=== PATIENT | female | born 2000 | race Caucasian/White ===

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

== ENCOUNTER 2022-09-21 18:41 | Emergency (ER) | payer MEDICAID, SELFPAY ==
[2022-09-21 18:54] VITALS: BP 147/82; PULSE 76; RESP 18; TEMP 35.7; O2SAT 98
--- NOTE | 2022-09-21 19:02 | W.ED.NAVMDI ---
HPI - Nausea/Vomiting/Diarrhea General: Chief complaint: Nausea/Vomiting/Diarrhea Stated complaint: 10 weeks , n/v, dehydrated? Time Seen by Provider: 09/21/22 18:57 Source: patient Mode of arrival: ambulatory Limitations: no limitations History of Present Illness: 21-year-old female who is currently 10 weeks she states that she has had issues with vomiting with this . She states that she had ran out of her nausea meds last night states she been having multiple episodes of vomiting today has not been able to tolerate any p.o. has had some dull abdominal cramping. She denies any vaginal bleeding. Associated nausea: Yes Associated symtoms: Reports nausea; Denies chest pain, dysuria or headache(s) Review of Systems Const: Denies: fever(s), chills, body aches or change in appetite Eyes: Denies: blurry vision or eye discomfort ENMT: Denies: throat pain or dental pain Card: Denies: chest pain Resp: Denies: dyspnea GI: Reports: abdominal pain, nausea and vomiting : Denies: dysuria Musc: Denies: neck pain or back pain Skin/Breast: Denies: rash Neuro: Denies: headache(s) Psych: Denies: depression Miguel/Lymph: Denies: easy bruising All/Imm: Denies: urticaria PFSH ED PFSH: Medical History Depression Seasonal allergies Surgical History No pertinent past surgical history Family History Other Heart disease Stroke Social History Smoking and tobacco status: never smoked Second hand smoke exposure: No Alcohol intake: never Current gender identity: Female Female Reproductive History: Date of last menstrual period: 07/09/22 Physical Exam Const: COMMON NORMALS: no acute distress, patient oriented x3 and healthy appearing HENMT: COMMON NORMALS: normocephalic and atraumatic HEAD & SCALP: normocephalic and atraumatic Eye: COMMON NORMALS: Equal, round and reactive pupils present and EOMs intact bilaterally PUPIL: Yes Equal, round and reactive pupils present Neck/C-Spine: COMMON NORMALS: full ROM and supple Chest: COMMONS NORMALS: normal inspection of the chest and normal palpation of entire chest wall Resp: COMMON NORMALS: normal respiratory effort, No retractions, No use of accessory muscles and clear to auscultation bilaterally AUSCULTATION: clear to auscultation bilaterally Cardio: COMMON NORMALS: regular rate, regular rhythm and No murmurs present (Cardio) RATE: regular rate RHYTHM: regular rhythm GI: COMMON NORMALS: Normal to inspection, nondistended, normoactive bowel sounds present, Soft to palpation, non-tender and no masses PALPATION: Yes Soft to palpation Extremity: COMMON NORMALS: normal to inspection and full ROM Neuro: COMMON NORMALS: patient oriented x3, moves all extremities and no focal motor deficits Psych: COMMON NORMALS: mental status grossly normal, Normal thought process present and cooperative THOUGHT PROCESS: Normal thought process present Skin: COMMON NORMALS: no rashes or lesions noted and no wounds GENERAL SKIN EXAM: no rashes or lesions noted Course Vital Signs: Vital signs: Vital Signs Temperature 96.3 F L 09/21/22 18:54 Pulse Rate 86 09/21/22 19:30 Respiratory Rate 14 09/21/22 19:30 Blood Pressure 142/73 09/21/22 19:30 Pulse Oximetry 100 09/21/22 19:30 MDM - Nausea/Vomiting/Diarrhea Medical Decision Making Patient presents with hyperemesis gravidarum she feels much improved here after fluids and antiemetics we will prescribe her Zofran for home she is to follow-up with her OB she has no complaints she is stable for discharge. Lab Data 09/21/22 19:20 09/21/22 19:20 Laboratory Results WBC 14.9 10^3/uL (4.5-13.0) H 09/21/22 19:20 RBC 4.78 10^6/uL (4.1-5.3) 09/21/22 19:20 Hgb 12.3 g/dL (11.5-15.3) 09/21/22 19:20 Hct 37.0 % (37.0-47.0) 09/21/22 19:20 MCV 77.4 fl (81-99) L 09/21/22 19:20 MCH 25.7 pg (28.0-34.0) L 09/21/22 19:20 MCHC 33.2 g/dL (30.0-36.0) 09/21/22 19:20 RDW 14.7 % (12.1-15.1) 09/21/22 19:20 Plt Count 346 10^3/cmm (130-400) 09/21/22 19:20 MPV 11.0 fL (7.4-10.4) H 09/21/22 19:20 Neut % (Auto) 92.9 % 09/21/22 19:20 Lymph % (Auto) 5.4 % 09/21/22 19:20 Moca % (Auto) 1.3 % 09/21/22 19:20 Eos % (Auto) 0.0 % 09/21/22 19:20 Baso % (Auto) 0.1 % 09/21/22 19:20 Neut # (Auto) 13.85 10^3/uL (1.8-8.0) H 09/21/22 19:20 Lymph # (Auto) 0.8 10^3/uL (1.5-6.5) L 09/21/22 19:20 Moca # (Auto) 0.2 10^3/uL (0.2-0.9) 09/21/22 19:20 Eos # (Auto) 0.0 10^3/uL (0.0-0.8) 09/21/22 19:20 Baso # (Auto) 0.0 10^3/uL (0.0-0.1) 09/21/22 19:20 Nucleated RBC % (auto) 0 % 09/21/22 19:20 Nucleated RBCs # 0.0 /100WBC 09/21/22 19:20 Sodium 135 mmol/L (136-145) L 09/21/22 19:20 Potassium 3.5 mmol/L (3.5-5.1) 09/21/22 19:20 Chloride 99 mmol/L (98-107) 09/21/22 19:20 Carbon Dioxide 16 mmol/L (22-29) L 09/21/22 19:20 Anion Gap 23.5 (5-19) H 09/21/22 19:20 BUN 7 mg/dL (6-20) 09/21/22 19:20 Creatinine 0.4 mg/dL (0.5-0.9) L 09/21/22 19:20 GFR Calculation 205.6 mL/min (90-130) H 09/21/22 19:20 Glucose 174 mg/dL (65-115) H 09/21/22 19:20 Calculated Osmolality 282 mOsm/kg (285-295) L 09/21/22 19:20 Calcium 10.4 mg/dL (8.5-10.5) 09/21/22 19:20 Total Bilirubin 0.2 mg/dL (0.15-1.2) 09/21/22 19:20 AST 14 U/L (0-32) 09/21/22 19:20 ALT 7 U/L (0-33) 09/21/22 19:20 Alkaline Phosphatase 69 U/L (35-105) 09/21/22 19:20 Total Protein 8.0 g/dL (6.6-8.7) 09/21/22 19:20 Albumin 4.5 g/dL (3.5-5.2) 09/21/22 19:20 Globulin 3.5 g/dL (1.3-4.6) 09/21/22 19:20 Lipase 14 U/L (13-60) 09/21/22 19:20 Discharge Plan Discharge Patient Disposition: Home Clinical Impression: Hyperemesis gravidarum Condition: Stable Prescriptions: New ondansetron 4 mg tablet,disintegrating 4 mg PO Q6H PRN (Reason: nausea and vomiting) Qty: 14 0RF No Action loperamide [Imodium A-D] 2 mg capsule 2 mg PO Q4H PRN (Reason: loose stool) Qty: 30 0RF Rx Instructions: do not exceed 8 mg per 24 hrs ondansetron HCl 4 mg tablet 4 mg PO Q6H PRN (Reason: nausea and vomiting) Qty: 60 0RF ciprofloxacin HCl 500 mg tablet 500 mg PO BID 7 Days Qty: 14 0RF paroxetine HCl 40 mg tablet 40 mg PO DAILY 30 Days Qty: 30 6RF Discharge Orders: Discharge ED (Routine); Ordered 09/21/22 Ordered By: Misti Das Referrals: Cheryl Sweet MD [Family Provider] - Discharge Diet: Advance as tolerated Discharge Activity: Resume usual activity Patient Instructions: Opioid Safety, Pain Management Coding Level of Care Code [facility] Administrator for Chg Fwd Exam Comprehensive
[2022-09-21] MEDS: diphenhydrAMINE 50 mg/mL SDV 1mL IVP (19:18)
[2022-09-21] MEDS: metoclopramide 5 mg/mL SDV 2 mL 10 MG IVP (19:19)
[2022-09-21] MEDS: sodium chloride 0.9% 1,000 ML 999 ML IV ×2 (19:19→19:57)
[2022-09-21 19:26] VITALS: BP 160/90; PULSE 83; RESP 14; O2SAT 99
[2022-09-21 19:30] VITALS: BP 142/73; PULSE 86; RESP 14; O2SAT 100
[2022-09-21] MEDS: ondansetron 2 mg/ML SDV 2 mL 4 MG IVP (19:33)
[2022-09-21 19:35] LABS: Basophils % 0.1 %; Hemoglobin 12.3 g/dL (11.5-15.3); Lymphocytes # 0.8 10^3/uL (1.5-6.5); Lymphocytes % 5.4 %; Mean Corpuscular HGB Conc 33.2 g/dL (30.0-36.0); Mean Corpuscular Hemoglobin 25.7 pg (28.0-34.0); Mean Corpuscular Volume 77.4 fl (81-99); Monocytes # 0.2 10^3/uL (0.2-0.9); Monocytes % 1.3 %; Neutrophils # 13.85 10^3/uL (1.8-8.0); Neutrophils % 92.9 %; Nucleated Red Blood Cells % 0 %; Platelet Count 346 10^3/cmm (130-400); Red Blood Count 4.78 10^6/uL (4.1-5.3); Red Cell Distribution Width 14.7 % (12.1-15.1); White Blood Count 14.9 10^3/uL (4.5-13.0)
[2022-09-21 19:58] LABS: Alanine Aminotransferase 7 U/L (0-33); Albumin Level 4.5 g/dL (3.5-5.2); Alkaline Phosphatase 69 U/L (35-105); Anion Gap 23.5 (5-19); Aspartate Amino Transferase 14 U/L (0-32); Blood Urea Nitrogen 7 mg/dL (6-20); Calcium 10.4 mg/dL (8.5-10.5); Carbon Dioxide 16 mmol/L (22-29); Chloride 99 mmol/L (98-107); Globulin 3.5 g/dL (1.3-4.6); Glomerular Filtration Rate 205.6 mL/min (90-130); Glucose 174 mg/dL (65-115); Lipase 14 U/L (13-60); Osmolality Calculated 282 mOsm/kg (285-295); Potassium 3.5 mmol/L (3.5-5.1); Sodium 135 mmol/L (136-145); Total Bilirubin 0.2 mg/dL (0.15-1.2)
[2022-09-21 21:19] VITALS: BP 118/71; PULSE 82; RESP 14
== END 2022-09-21 21:21 | disposition home or self-care (01) ==
PROVIDERS: Emergency Provider Emergency Medicine; Family Provider Family Medicine
DX: O21.0 Mild hyperemesis gravidarum (principal); Z3A.10 10 weeks gestation of pregnancy
CPT/HCPCS: 80053; 83690; 85025; 96361; 96374; 96375; 99284; J1200; J2405; J2765; J7030

== ENCOUNTER → 2022-09-24 16:45 | Outpatient (BNVA) | payer MEDICAID, SELFPAY | PROVIDERS: Family Provider Family Medicine; Visit Provider Nurse Practitioner Family | DX: O21.0 Mild hyperemesis gravidarum (principal); D72.829 Elevated white blood cell count, unspecified; Z34.90 Encounter for supervision of normal pregnancy, unspecified, unspecified trimester | CPT/HCPCS: 80053 ==

== ENCOUNTER → 2022-09-30 10:40 | Outpatient (BNVA) | payer MEDICAID, SELFPAY | PROVIDERS: Family Provider Family Medicine; Visit Provider Nurse Practitioner Women's Health | DX: Z34.90 Encounter for supervision of normal pregnancy, unspecified, unspecified trimester (principal) | CPT/HCPCS: 81000; 81025 ==

== ENCOUNTER → 2022-10-08 13:51 | Outpatient (BNVA) | payer MEDICAID, SELFPAY | PROVIDERS: Family Provider Family Medicine; Visit Provider Obstetrics & Gynecology | DX: Z34.91 Encounter for supervision of normal pregnancy, unspecified, first trimester (principal); Z3A.12 12 weeks gestation of pregnancy | CPT/HCPCS: 76801; 81000 ==

== ENCOUNTER → 2022-11-01 07:46 | Outpatient (BNVA) | payer MEDICAID, SELFPAY | PROVIDERS: Family Provider Family Medicine; Visit Provider Obstetrics & Gynecology | DX: Z34.90 Encounter for supervision of normal pregnancy, unspecified, unspecified trimester (principal) | CPT/HCPCS: 80307; 81000; 85027; 86592; 86762; 86803; 86850; 86900; 87086; 87340; 87491; 87591; 87661; 87806 ==

== ENCOUNTER → 2022-11-27 09:49 | Outpatient (BNVA) | payer MEDICAID, SELFPAY | PROVIDERS: Family Provider Family Medicine; Visit Provider Obstetrics & Gynecology | DX: Z34.92 Encounter for supervision of normal pregnancy, unspecified, second trimester (principal) | CPT/HCPCS: 76805 ==

== ENCOUNTER → 2022-12-02 11:23 | Outpatient (BNVA) | payer MEDICAID, SELFPAY | PROVIDERS: Family Provider Family Medicine; Visit Provider Obstetrics & Gynecology | DX: Z34.90 Encounter for supervision of normal pregnancy, unspecified, unspecified trimester (principal) | CPT/HCPCS: 81000 ==

== ENCOUNTER → 2022-12-23 12:21 | Outpatient (BNVA) | payer MEDICAID, SELFPAY | PROVIDERS: Family Provider Family Medicine; Visit Provider Obstetrics & Gynecology | DX: Z34.90 Encounter for supervision of normal pregnancy, unspecified, unspecified trimester (principal) | CPT/HCPCS: 76816 ==

== ENCOUNTER → 2022-12-26 11:23 | Outpatient (BNVA) | payer MEDICAID, SELFPAY | PROVIDERS: Family Provider Family Medicine; Visit Provider Nurse Practitioner Women's Health | DX: Z34.90 Encounter for supervision of normal pregnancy, unspecified, unspecified trimester (principal) | CPT/HCPCS: 81000; 82950 ==

== ENCOUNTER → 2023-01-24 13:50 | Outpatient (BNVA) | payer MEDICAID, SELFPAY | PROVIDERS: Family Provider Family Medicine; Visit Provider Obstetrics & Gynecology | DX: Z34.00 Encounter for supervision of normal first pregnancy, unspecified trimester (principal) | CPT/HCPCS: 81000; 85025 ==

== ENCOUNTER → 2023-02-06 10:53 | Outpatient (BNVA) | payer MEDICAID, SELFPAY | PROVIDERS: Family Provider Family Medicine; Visit Provider Obstetrics & Gynecology | DX: Z34.00 Encounter for supervision of normal first pregnancy, unspecified trimester (principal) | CPT/HCPCS: 81000 ==

== ENCOUNTER → 2023-02-21 09:47 | Outpatient (BNVA) | payer MEDICAID, SELFPAY | PROVIDERS: Family Provider Family Medicine; Visit Provider Obstetrics & Gynecology | DX: Z34.00 Encounter for supervision of normal first pregnancy, unspecified trimester (principal); Z36.2 Encounter for other antenatal screening follow-up; G40.309 Generalized idiopathic epilepsy and epileptic syndromes, not intractable, without status epilepticus | CPT/HCPCS: 81000 ==

== ENCOUNTER → 2023-03-07 10:00 | Outpatient (BNVA) | payer MEDICAID, SELFPAY | PROVIDERS: Family Provider Family Medicine; Visit Provider Nurse Practitioner Women's Health | DX: Z34.00 Encounter for supervision of normal first pregnancy, unspecified trimester (principal); Z36.2 Encounter for other antenatal screening follow-up | CPT/HCPCS: 80307; 81000 ==

== ENCOUNTER 2023-03-11 13:20 | Outpatient (CLI) | payer MEDICAID, SELFPAY ==
--- NOTE | 2023-03-11 13:30 | US_ITS ---
WS: [id number] LIMITED OBSTETRICAL ULTRASOUND HISTORY: Growth. COMPARISON: 12/23/2022, 10/08/2022 Presentation: Cephalic. Cervix: Closed and normal length. Placenta: Anterior, no previa or abruption. Grade: 3 HEART: FHR of 160 BPM. measurements: BPD = 8.9 cm = 35w5d; 80th percentile HC = 32.5 cm = 36w5d; 68th percentile AC = 29.4 cm = 33w3d; 19th percentile FL = 6.7 cm = 34w4d; 36th percentile Visually normal amniotic fluid. EFW: 2392 g; 52nd percentile AGA by ultrasound: 35w1d CHRISSY by ultrasound: 04/14/2023 US/US OB limited [id number] IMPRESSION: 1. Single intrauterine gestation of 35 weeks 1 day with an EDC of 04/14/2023. 2. Appropriate growth since the first trimester ultrasound and the most recent ultrasound. 3. Grade 3 placenta. 4. Estimated weight at the 52nd percentile.
== END 2023-03-11 13:21 | disposition home or self-care (01) ==
PROVIDERS: PCP Family Medicine; Visit Provider Obstetrics & Gynecology
DX: Z34.03 Encounter for supervision of normal first pregnancy, third trimester (principal)
CPT/HCPCS: 76815; 81000

== ENCOUNTER → 2023-03-21 11:20 | Outpatient (BNVA) | payer MEDICAID, SELFPAY | PROVIDERS: PCP Family Medicine; Visit Provider Obstetrics & Gynecology | DX: Z34.00 Encounter for supervision of normal first pregnancy, unspecified trimester (principal) | CPT/HCPCS: 81000; 87081 ==

== ENCOUNTER → 2023-03-28 09:56 | Outpatient (BNVA) | payer MEDICAID, SELFPAY | PROVIDERS: PCP Family Medicine; Visit Provider Obstetrics & Gynecology | DX: Z34.00 Encounter for supervision of normal first pregnancy, unspecified trimester (principal) | CPT/HCPCS: 81000 ==

== ENCOUNTER 2023-04-04 11:25 | Outpatient (CLI) | payer MEDICAID, SELFPAY ==
[2023-04-04 11:25] VITALS: BMI 32.1
[2023-04-04 11:43] VITALS: BP 131/84; PULSE 109; RESP 16
[2023-04-04 12:05] VITALS: BP 136/85; PULSE 99
[2023-04-04 12:20] VITALS: BP 133/81; PULSE 86
[2023-04-04 12:22] LABS: Add Urine Microscopic? YES; Bilirubin Urine Neg (Negative); Blood Urine Neg (Negative); Glucose Urine UA Norm (Normal); Ketones Urine Negative (Negative); Leukocyte Esterase Urine Trace (Negative); Nitrate Urine Negative (Negative); Protein Urine Neg (Negative); Urine Appearance Cloudy (CLEAR); Urine Color Yellow (Yellow); Urobilinogen Urine Norm (Negative); pH Urine 7 (5-7)
[2023-04-04 12:23] LABS: Add Urine Culture? No; Bacteria Urine TRACE /hpf; RBC Urine 0-4 /hpf (0-2); Squamous Epithelial Cell Urine 0-4 /hpf (0-5); WBC Urine 0-4 /hpf (0-5)
[2023-04-04 12:24] LABS: Mucus Urine 1+ /hpf
[2023-04-04 12:27] LABS: Basophils % 0.2 %; Eosinophils # 0.1 10^3/uL (0.0-0.8); Eosinophils % 0.6 %; Hematocrit 29.5 % (37.0-47.0); Hemoglobin 9.3 g/dL (11.5-15.3); Lymphocytes # 2.1 10^3/uL (1.5-6.5); Lymphocytes % 15.3 %; Mean Corpuscular HGB Conc 31.5 g/dL (30.0-36.0); Mean Corpuscular Hemoglobin 23.8 pg (28.0-34.0); Mean Corpuscular Volume 75.4 fl (81-99); Mean Platelet Volume 11.6 fL (7.4-10.4); Monocytes # 0.9 10^3/uL (0.2-0.9); Monocytes % 6.5 %; Neutrophils # 9.99 10^3/uL (1.8-8.0); Neutrophils % 73.6 %; Nucleated Red Blood Cells % 0 %; Platelet Count 276 10^3/cmm (130-400); Red Blood Count 3.91 10^6/uL (4.1-5.3); White Blood Count 13.6 10^3/uL (4.5-13.0)
[2023-04-04 12:34] LABS: Urine Creatinine 116 mg/dL (28-217); Urine Protein Random 16 mg/dL
[2023-04-04 12:35] VITALS: BP 134/88; PULSE 86
[2023-04-04 12:35] LABS: Alanine Aminotransferase < 5 U/L (0-33); Albumin Level 3.5 g/dL (3.5-5.2); Alkaline Phosphatase 128 U/L (35-105); Anion Gap 18.2 (5-19); Aspartate Amino Transferase 12 U/L (0-32); Blood Urea Nitrogen 8 mg/dL (6-20); Calcium 8.8 mg/dL (8.5-10.5); Carbon Dioxide 22 mmol/L (22-29); Chloride 100 mmol/L (98-107); Globulin 3.2 g/dL (1.3-4.6); Glomerular Filtration Rate 203.5 mL/min (90-130); Glucose 91 mg/dL (65-115); Osmolality Calculated 280 mOsm/kg (285-295); Potassium 4.2 mmol/L (3.5-5.1); Sodium 136 mmol/L (136-145); Total Bilirubin 0.2 mg/dL (0.15-1.2); Total Protein 6.7 g/dL (6.6-8.7); Uric Acid 3.3 mg/dL (2.4-5.7)
[2023-04-04 12:42] LABS: UPRO/UCREAT Ratio 0.14 mg/mg CR
== END 2023-04-04 13:00 | disposition home or self-care (01) ==
LOC: OPOB 11:29 → OBGYN 11:31
PROVIDERS: PCP Family Medicine; Visit Provider Obstetrics & Gynecology
DX: O16.9 Unspecified maternal hypertension, unspecified trimester (principal); Z3A.00 Weeks of gestation of pregnancy not specified
CPT/HCPCS: 36415; 59025; 80053; 81000; 81001; 82570; 84156; 84550; 85025; 99211

== ENCOUNTER → 2023-04-11 08:43 | Outpatient (BNVA) | payer MEDICAID, SELFPAY | PROVIDERS: PCP Family Medicine; Visit Provider Obstetrics & Gynecology | DX: Z34.00 Encounter for supervision of normal first pregnancy, unspecified trimester (principal) | CPT/HCPCS: 81000; 87086 ==

== ENCOUNTER 2023-04-18 19:34 | Inpatient (IN) | payer MEDICAID, SELFPAY ==
[2023-04-18] VITALS (46 sets, daily range): BP systolic 131–162; BP diastolic 68–106; PULSE 65–147; RESP 14–20; TEMP 37.1; O2SAT 95–100; BMI 32.1
[2023-04-18 11:00] LABS: Basophils % 0.2 %; Eosinophils # 0.1 10^3/uL (0.0-0.8); Eosinophils % 0.6 %; Hematocrit 24.6 % (37.0-47.0); Hemoglobin 7.6 g/dL (11.5-15.3); Lymphocytes # 2.5 10^3/uL (1.5-6.5); Lymphocytes % 16.3 %; Mean Corpuscular HGB Conc 30.9 g/dL (30.0-36.0); Mean Corpuscular Volume 74.3 fl (81-99); Mean Platelet Volume 11.6 fL (7.4-10.4); Monocytes % 6.1 %; Neutrophils # 11.63 10^3/uL (1.8-8.0); Neutrophils % 74.5 %; Nucleated Red Blood Cells % 0 %; Platelet Count 285 10^3/cmm (130-400); Red Blood Count 3.31 10^6/uL (4.1-5.3); Red Cell Distribution Width 15.6 % (12.1-15.1); White Blood Count 15.6 10^3/uL (4.5-13.0)
[2023-04-18] MEDS: miSOPROStol 100 mcg tablet 25 MCG SUBLINGUAL (11:09)
[2023-04-18 11:10] LABS: Amphetamines Screen Urine Negative (Negative); Barbiturates Screen Urine Negative (Negative); Benzodiazepines Screen Urine Negative (Negative); Cocaine Screen Urine Negative (Negative); Opiate Screen Urine Negative (Negative); PCP Screen Urine Negative (Negative); THC Screen Urine Positive (Negative)
[2023-04-18] MEDS: lactated ringers 1,000 ML 999 ML IV (17:04)
--- NOTE | 2023-04-18 17:20 | P.ANESASSM_ITS ---
Pre-Anesthetic Assessment Height/Weight: Height 1.7 m Weight 92.986 kg Pulse BP Pulse Ox 102 H 161/93 100 04/18/23 17:40 04/18/23 17:40 04/18/23 17:37 Preop Diagnosis: IUP labor epidural Familial anesthetic complications: none Was Beta Enrique taken within 24 hours: N/A Was Clonidine taken within 24 hours: N/A Last Intake: 13:30 Social No alcohol and No tobacco Exam alert and oriented x 3 Airway Submandibular: within normal limits Cervical ROM: within normal limits Mallampati: Class I Comments: Comments: very poor dentition, multiple black and chipped teeth front upper History/ROS No significant history except as noted Pulmonary None reported CV/HEM None reported None reported Hepatic None reported GI Gastroesophageal Reflux Disease Metabolic None reported Musc/skel None reported Neuropsych None reported Anesthetic Plan ASA status: 2 Anesthesia: Anesthesia Evaluation and Regional (specify below) Risk of > 500 ml blood loss (7ml/kg in children): No Medications/Allergies Home Medications Medication Instructions Recorded Confirmed Last Taken Type metoclopramide HCl 10 mg tablet 10 mg PO Q6H PRN nausea and 12/26/22 04/11/23 U nknown Rx (Reglan) vomiting #60 tabs ondansetron 4 mg disintegrating See Rx Instructions .Route 04/09/23 04/11/23 Unknown Rx tablet .COMPLEX #14 tabs Allergies Allergy/AdvReac Type Severity Reaction Status Date / Time No Known Allergies Allergy Verified 04/04/23 10:09 Current Medications Generic Name Dose Route Start Last Admin Trade Name Freq PRN Reason Stop Dose Admin Lactated Ringer's 1,000 mls @ 999 mls/hr 04/18/23 15:51 04/18/23 17:04 Lactated Ringers IV 999 mls/hr .Q1H1M PRN Administration See label comments PFSH Anesthesia Medical History Depression Generalized epilepsy No pertinent past medical history neghx:htn,dm,thyroid,dvt/pe PCP: not at this time Seasonal allergies Surgical History No pertinent past surgical history Family History Mother Breast cancer Denies family history of Colon cancer Ovarian cancer Diabetes Heart disease Family history of thyroid problem Hypertension Uterine cancer Stroke Hyperchloremia Social History Substance/Drug Use: never Data Anesthesia 04/18/23 09:06 Short CBC 04/18/23 Range/Units 09:06 WBC 15.6 H (4.5-13.0) 10^3/uL Hgb 7.6 L (11.5-15.3) g/dL Hct 24.6 L (37.0-47.0) % MCV 74.3 L (81-99) fl Plt Count 285 (130-400) 10^3/cmm Neut % (Auto) 74.5 % Neut # (Auto) 11.63 H (1.8-8.0) 10^3/uL Cardiac Studies: No Data to Display
[2023-04-18 17:34] LABS: Basophils # 0.1 10^3/uL (0.0-0.1); Basophils % 0.4 %; Eosinophils % 0.1 %; Hematocrit 34.2 % (37.0-47.0); Hemoglobin 9.9 g/dL (11.5-15.3); Lymphocytes # 1.7 10^3/uL (1.5-6.5); Lymphocytes % 9.5 %; Mean Corpuscular HGB Conc 28.9 g/dL (30.0-36.0); Mean Corpuscular Hemoglobin 23.8 pg (28.0-34.0); Mean Corpuscular Volume 82.2 fl (81-99); Mean Platelet Volume 12.2 fL (7.4-10.4); Monocytes # 0.9 10^3/uL (0.2-0.9); Monocytes % 5.2 %; Neutrophils # 14.95 10^3/uL (1.8-8.0); Nucleated Red Blood Cells % 0 %; Platelet Count 248 10^3/cmm (130-400); Red Blood Count 4.16 10^6/uL (4.1-5.3)
--- NOTE | 2023-04-18 17:40 | P.ANES_ITS ---
Anesthesia Procedures Procedure/Date: 04/18/23 labor epidural Epidural: Time Out Performed: Yes Consents Signed: Procedure Consent Consent: from patient, risks and benefits reviewed and patient agrees to proceed Lumbar Level: L3-L4 Epidural position: sitting Epidural procedure: sterile prep of area, 1% lidocaine to numb the area, 18 g needle, negative for paresthesia passed, neg for paresthesia, test dose given, 1.5% xylocaine 1:200k epi, placed PCEA, no systemic response, sterile dressing applied and 0.2% Ropia vacaine @ mls/hr (10) Additional Comments: ONESIMO at 5, taped at 12 at skin. negative heme/CSF return upon aspiration.
[2023-04-18] MEDS: lidocaine 2% INJ 20 mL INJECTION (21:40)
--- NOTE | 2023-04-18 22:00 | PM.OPHPUD ---
Labor & Delivery H&P Update Date of Procedure: April 18, 2023 Date H&P Performed: 04/11/23 H&P update information: I have reviewed H&P completed within last 30 days, I have examined patient prior to procedure and Changes to prior documentation as noted here Changes to previous documentation: The patient presented to labor and delivery with PROM at 0600 hrs. Her cervix was unchanged from the office Admission Diagnosis: at 40w1d, PROM Preop diagnosis: IUP Related Problem List Diagnoses (1) Supervision of normal first : (2) Depression: (3) Nausea/vomiting in :
[2023-04-18] MEDS: dextrose 5%-lactated ringers 1,000 ML 125 ML IV (22:02)
--- NOTE | 2023-04-18 22:02 | PM.DELIVERY ---
Delivery Note: Date of delivery: April 18, 2023 Pre-delivery diagnoses: iup@ 40w1d, PROM Post-delivery diagnoses: same-delivered Procedure: Pre-Delivery Course: The patient was admitted for PROM at 0600 hrs. She received one dose of cytotec and progressed to 3 cm dilation. She was faby every 2 minutes, so nothing further was given. She received an epidural for pain management. at 5 cm dilation, she began to space her contractions out. 2 mU of pitocin was started. She had complete cervical dilation and began pushing. Delivery: The patient had complete cervical dilation and began to push. A second degree episiotomy was cut, after obtaining verbal permission from the patient. The head delivered in the SHIRLENE position over a second degree episiotomy under epidural anesthesia. The shoulders and body delivered atraumatically. The baby was placed onto the mother's abdomen. The cord was clamped and cut. The placenta delivered spontaneously. It was inspected and found to be intact. Inspection of the perineum revealed a second-degree episiotomy without extension. It was repaired in the usual fashion. Estimated blood loss 50 mL. Apgars on baby were 8 at 1 minute and 9 at 5 minutes. Weight of baby is 6 pounds 12 ounces. Mother and baby were stable post delivery. History History History 1 Term 0 Miscarriages/Ectopic Living Children Coding Level of Care Code Acute Code for Chg Fwd Diagnoses
[2023-04-19] VITALS (9 sets, daily range): BP systolic 122–148; BP diastolic 64–87; PULSE 79–101; RESP 14–18; TEMP 36.7–37.1; O2SAT 97–99
[2023-04-19] MEDS: ibuprofen 800 mg tablet PO ×3 (08:58→20:15)
[2023-04-19] MEDS: docusate sodium 100 mg Capsule PO ×2 (08:58→17:55)
[2023-04-19] MEDS: prenatal vitamin Capsule 1 CAP PO (08:58)
[2023-04-19 11:36] LABS: Hematocrit 25.4 % (37.0-47.0); Mean Corpuscular HGB Conc 31.5 g/dL (30.0-36.0); Mean Corpuscular Hemoglobin 23.2 pg (28.0-34.0); Mean Corpuscular Volume 73.6 fl (81-99); Mean Platelet Volume 11.3 fL (7.4-10.4); Platelet Count 247 10^3/cmm (130-400); Red Blood Count 3.45 10^6/uL (4.1-5.3); Red Cell Distribution Width 15.9 % (12.1-15.1); White Blood Count 17.9 10^3/uL (4.5-13.0)
--- NOTE | 2023-04-19 16:42 | ANE.PACU2 ---
Inpatient post-anesthesia follow up: Airway intact: Yes Vital signs: Temperature 98.3 F Pulse Rate 86 Respiratory Rate 18 Blood Pressure 144/87 Pulse Oximetry 99 Oxygen Delivery Me thod Room Air Oxygen Flow Rate Fraction of Inspir ed Oxygen Hydration adequate: Yes Nausea and vomiting: No Pain level: 1 Mental status: Baseline
[2023-04-20 05:04] VITALS: BP 144/88; PULSE 95; RESP 16; O2SAT 97
[2023-04-20] MEDS: ibuprofen 800 mg tablet PO (09:26)
[2023-04-20] MEDS: docusate sodium 100 mg Capsule PO (09:26)
[2023-04-20] MEDS: prenatal vitamin Capsule 1 CAP PO (09:26)
--- NOTE | 2023-04-20 10:30 | PM.OBGYDC ---
Discharge Providers PHOTO LAB MANAGER Date of Admission: 04/18/23 19:34 Date of Discharge: 04/20/23 Attending Provider at Admission: Manju Koehler MD Attending Provider at Discharge: Pierre Spring MD Primary Care Provider: Cheryl Sweet MD Diagnoses at Discharge Discharge Diagnosis (1) Supervision of normal first : Details from hospital stay: patient s/p vaginal delivery April 18, 2023 no complications Status: Acute (2) Depression: Details from hospital stay: no symptoms of depression patient feeling well Status: Acute (3) Nausea/vomiting in : Details from hospital stay: resolved Status: Acute Reason for Visit Reason for Visit: POSSIBLE SROM Hospital Course Hospital Course patient s/p vaginal delivery April 18, 2023, without any complications Information Peripartum Data: Infant Delivery Method: Vaginal Physical Exam Const: COMMON NORMALS: no acute distress, average body habitus, patient oriented x3, healthy appearing and alert HENMT: COMMON NORMALS: hearing grossly normal bilaterally Resp: COMMON NORMALS: normal respiratory effort, No retractions, No use of accessory muscles and clear to auscultation bilaterally AUSCULTATION: clear to auscultation bilaterally Cardio: COMMON NORMALS: regular rate and regular rhythm RATE: regular rate RHYTHM: regular rhythm GI: COMMON NORMALS: Normal to inspection, nondistended, normoactive bowel sounds present, Soft to palpation and non-tender PALPATION: Yes Soft to palpation Extremity: COMMON NORMALS: normal to inspection, no calf tenderness and no pedal edema Neuro: COMMON NORMALS: patient oriented x3 SENSORIUM/ORIENTATION: Yes alert Urinary Catheter Management: Chavira: Cath Placed During This Visit: yes, but has since been removed by the nurse Reason for Continuing Indwelling Catheter: Decision to DC Catheter Urinary Catheter Date of Insertion: 04/18/23 Urinary Catheter Time of Insertion: 18:25 Date Urinary Catheter Removed: 04/18/23 Time Urinary Catheter Discontinued: 21:25 History History History 1 Term 0 Miscarriages/Ectopic Living Children Discharge Data Studies Completed and Pending Laboratory Results WBC 17.9 10^3/uL (4.5-13.0) H 04/19/23 11:20 RBC 3.45 10^6/uL (4.1-5.3) L 04/19/23 11:20 Hgb 8.0 g/dL (11.5-15.3) L 04/19/23 11:20 Hct 25.4 % (37.0-47.0) L 04/19/23 11:20 MCV 73.6 fl (81-99) L D 04/19/23 11:20 MCH 23.2 pg (28.0-34.0) L 04/19/23 11:20 MCHC 31.5 g/dL (30.0-36.0) D 04/19/23 11:20 RDW 15.9 % (12.1-15.1) H 04/19/23 11:20 Plt Count 247 10^3/cmm (130-400) 04/19/23 11:20 MPV 11.3 fL (7.4-10.4) H 04/19/23 11:20 Neut % (Auto) 83.0 % 04/18/23 17:05 Lymph % (Auto) 9.5 % 04/18/23 17:05 [place] % (Auto) 5.2 % 04/18/23 17:05 Eos % (Auto) 0.1 % 04/18/23 17:05 Baso % (Auto) 0.4 % 04/18/23 17:05 Neut # (Auto) 14.95 10^3/uL (1.8-8.0) H 04/18/23 17:05 Lymph # (Auto) 1.7 10^3/uL (1.5-6.5) 04/18/23 17:05 [place] # (Auto) 0.9 10^3/uL (0.2-0.9) 04/18/23 17:05 Eos # (Auto) 0.0 10^3/uL (0.0-0.8) 04/18/23 17:05 Baso # (Auto) 0.1 10^3/uL (0.0-0.1) 04/18/23 17:05 Nucleated RBC % (auto) 0 % 04/18/23 17:05 Nucleated RBCs # 0.0 /100WBC 04/18/23 17:05 Urine Opiates Screen Negative ng/mL (Negative) 04/18/23 09:00 Ur Barbiturates Screen Negative ng/mL (Negative) 04/18/23 09:00 Ur Phencyclidine Scrn Negative ng/mL (Negative) 04/18/23 09:00 Ur Amphetamines Screen Negative ng/mL (Negative) 04/18/23 09:00 U Benzodiazepines Scrn Negative ng/mL (Negative) 04/18/23 09:00 Urine Cocaine Screen Negative ng/mL (Negative) 04/18/23 09:00 U Marijuana (THC) Screen Positive ng/mL (Negative) H 04/18/23 09:00 Procedures Performed vaginal delivery Vitals Last Vital Signs Temp 98.4 F 04/19/23 21:43 Pulse 95 04/20/23 05:04 Resp 16 04/20/23 05:04 BP 144/88 04/20/23 05:04 Pulse Ox 97 04/20/23 05:04 O2 Del Method Room Air 04/20/23 05:04 Discharge Plan Discharge Patient Disposition: Home Condition: Stable Prescriptions: Discontinued metoclopramide HCl [Reglan] 10 mg tablet 10 mg PO Q6H PRN (Reason: nausea and vomiting) Qty: 60 0RF ondansetron 4 mg tablet,disintegrating See Rx Instructions .ROUTE .COMPLEX Qty: 14 0RF Dose Instruction: DISSOLVE 1 TABLET IN MOUTH EVERY 6 HOURS NEEDED FOR NAUSEA AND VOMITING Rx Instructions: DISSOLVE 1 TABLET IN MOUTH EVERY 6 HOURS NEEDED FOR NAUSEA AND VOMITING Discharge Orders: Discharge Order (Routine); Ordered 04/20/23 Ordered By: Pierre Spring Referrals: Praneeth Salinas MD [Physician] - 06/02/23 10:15 am Discharge Diet: Usual diet Discharge Activity: Increase activity as tolerated Discharge Attestations PHOTO LAB MANAGER Time Spent in Discharge Care*: less than 30 min Coding Level of Care Code Acute Code for Chg Fwd Diagnoses Supervision of normal first Z34.00 Depression F32.9 Nausea/vomiting in O21.9 Time Spent (min) 15
--- NOTE | 2023-04-20 14:05 | PM.PN ---
Subjective Subjective: The patient has done well. She has no concerns. Vitals/I&O/Wt Last Vital Signs Temp 98.4 F 04/19/23 21:43 Pulse 95 04/20/23 05:04 Resp 16 04/20/23 05:04 BP 144/88 04/20/23 05:04 Pulse Ox 97 04/20/23 05:04 O2 Del Method Room Air 04/20/23 05:04 Physical Exam Narrative: The patient's pain is well controlled. She is ambulating without difficulty. She is tolerating a regular diet. Const: COMMON NORMALS: no acute distress, patient oriented x3, no limitations, healthy appearing, alert and well nourished GENERAL APPEARANCE: cooperative, comfortable, well kempt and well developed ORIENTATION/CONSCIOUSNESS: Yes awake, Yes oriented to person, Yes oriented to place and Yes oriented to time Resp: COMMON NORMALS: normal respiratory effort GI: COMMON NORMALS: Soft to palpation and non-tender PALPATION: Yes Soft to palpation Extremity: COMMON NORMALS: no calf tenderness Neuro: COMMON NORMALS: patient oriented x3 SENSORIUM/ORIENTATION: Yes alert, Yes oriented to person, Yes oriented to place and Yes oriented to time Psych: APPEARANCE: Yes well kempt Urinary Catheter Management: Chavira: Cath Placed During This Visit: yes, but has since been removed by the nurse Reason for Continuing Indwelling Catheter: Decision to DC Catheter Urinary Catheter Date of Insertion: 04/18/23 Urinary Catheter Time of Insertion: 18:25 Date Urinary Catheter Removed: 04/18/23 Time Urinary Catheter Discontinued: 21:25 Data 04/19/23 11:20 Attestations Medical Necessity Statement*: The patient had a vaginal delivery and requests discharge tomorrow. Coding Level of Care Code Acute Code for Chg Fwd Diagnoses
[2023-04-20 15:45] VITALS: BP 132/84; PULSE 84; RESP 14; TEMP 36.9; O2SAT 99
[2023-04-20 15:57] VITALS: BP 132/84; PULSE 84; RESP 14; TEMP 36.9; O2SAT 99
== END 2023-04-20 15:58 | disposition home or self-care (01) | DRG 807 ==
LOC: OPOB 19:34 → OBGYN 19:34
PROVIDERS: Obstetrics & Gynecology; Admitting Provider Obstetrics & Gynecology; PCP Family Medicine; Visit Provider Obstetrics & Gynecology
DX: O48.0 Post-term pregnancy (principal); Z37.0 Single live birth; Z3A.40 40 weeks gestation of pregnancy; O70.1 Second degree perineal laceration during delivery
CPT/HCPCS: 36415; 51702; 59025; 59409; 80306; 83986; 85025; 85027; 99211; J7040; J7120; J7121

== ENCOUNTER → 2025-04-05 11:28 | Outpatient (BNVA) | payer MEDICAID, SELFPAY | PROVIDERS: Family Provider Nurse Practitioner Family; PCP Nurse Practitioner Family; Visit Provider Nurse Practitioner Family | DX: R07.9 Chest pain, unspecified (principal) | CPT/HCPCS: 71046; 80053; 85025 ==

== ENCOUNTER → 2025-04-11 09:46 | Outpatient (BNVA) | payer MEDICAID, SELFPAY | PROVIDERS: Family Provider Nurse Practitioner Family; PCP Nurse Practitioner Family; Visit Provider Nurse Practitioner Family | DX: R71.8 Other abnormality of red blood cells (principal) | CPT/HCPCS: 82728; 83550 ==